=== PATIENT | female | born 1955 | race Caucasian/White ===

== ENCOUNTER 2020-11-24 09:50 | Inpatient (IN) | payer MEDICARE ==
[2020-11-24] MEDS ORDERED: Metoprolol Tartrate 5 MG/5 ML VIAL ONE ×2 (10:17→10:55)
[2020-11-24 11:02] LABS: #Basophils 0.1 10x3/uL (0.0-0.2); #Eosinphils 0.2 10x3/uL (0.0-0.5); #Monocytes 0.8 10x3/uL (0.0-1.1); #Neutrophils 9.3 10x3/uL (1.5-8.4); %Basophils 0.4 % (0.0-2.0); %Eosinophils 1.7 % (0.0-6.0); %Lymphocytes 14.3 % (18.0-47.0); %Monocytes 6.4 % (0.0-10.0); %Neutrophils 76.5 % (40.0-75.0); Mean Corpuscular HGB CONC 33.4 g/dL (32.0-36.0); Mean Corpuscular Hemoglobin 30.7 pg (27.0-33.0); Mean Corpuscular Volume 91.8 fl (81.6-98.3); Platelet Count 311 10x3/uL (150-450); RBC Distribution Width 15.2 % (11.5-14.5); Red Blood Cell (RBC) Count 3.91 10x6/uL (3.90-5.03); White Blood Cell (WBC) Count 12.1 10x3/uL (3.5-10.5)
[2020-11-24 11:09] LABS: ALT (SGPT) 15 U/L (8-55); AST (SGOT) 26 U/L (5-34); Albumin 4.3 g/dL (3.4-4.8); Alkaline Phosphatase 132 U/L (40-110); Anion Gap 20 mmol/L (10-20); BUN (Urea Nitrogen) 16 mg/dL (9.8-20.1); Bilirubin, Total 0.8 mg/dL (0.2-1.2); Calc. Creatinine Clearance 0 mL/min (70-130); Calcium 10.3 mg/dL (7.8-10.44); Carbon Dioxide 21 mmol/L (23-31); Chloride 101 mmol/L (98-107); Globulin 3.4 g/dL (2.4-3.5); Glucose 167 mg/dL (80-115); Potassium 4.8 mmol/L (3.5-5.1); Protein, Total 7.7 g/dL (5.8-8.1); Sodium 137 mmol/L (136-145)
[2020-11-24] MEDS ORDERED: Aspirin Chewable 81 MG TAB ONE (12:16)
[2020-11-24] MEDS ORDERED: Acetaminophen 325 MG TAB PO PRN (12:17)
[2020-11-24] MEDS ORDERED: Ondansetron PF 4 MG/2 ML Vial IVP PRN (12:17)
[2020-11-24] MEDS ORDERED: Enoxaparin Sodium 40 MG/0.4 ML SYRINGE SC SCH (12:30)
[2020-11-24 12:45] LABS: SARS-CoV-2 NAA Rapid Test Not Detected (NotDetected)
[2020-11-24 13:42] LABS: Troponin I 0.021 ng/mL (< 0.028)
[2020-11-24] MEDS ORDERED: Dextrose 50% Abboject 50 ML SYRINGE SLOW IVP PRN (15:14)
[2020-11-24] MEDS ORDERED: Dextrose 5% in Water 1,000 ML IV PRN (15:14)
[2020-11-24] MEDS ORDERED: Insulin Regular 300 UNITS/3 ML VIAL SC PRN (15:14)
[2020-11-24] MEDS ORDERED: HumaLOG 300 UNITS/3 ML VIAL SC PRN (15:14)
[2020-11-24] MEDS ORDERED: Digoxin 0.5 MG/2 ML AMP SLOW IVP SCH (16:15)
[2020-11-24] MEDS ORDERED: Digoxin 0.5 MG/2 ML AMP ONE (16:19)
[2020-11-24 16:41] LABS: Troponin I 0.021 ng/mL (< 0.028)
[2020-11-24] MEDS ORDERED: Diltiazem 125 MG/25 ML ONE (16:53)
[2020-11-24 20:18] VITALS: BMI 30.1
[2020-11-24] MEDS ORDERED: Metoprolol Tartrate 25 MG TAB PO SCH (21:00)
[2020-11-24] MEDS: metFORMIN XR 500 MG TAB PO SCH (21:20)
[2020-11-24] MEDS: Apixaban 5 MG TAB PO SCH (21:23)
[2020-11-25] MEDS ORDERED: Diltiazem 125 MG in Sodium Chloride 0.9% 100 ML IVPB SCH ×2 (03:00→21:30)
[2020-11-25 05:45] LABS: #Basophils 0.1 10x3/uL (0.0-0.2); #Eosinphils 0.2 10x3/uL (0.0-0.5); #Monocytes 0.6 10x3/uL (0.0-1.1); #Neutrophils 5.6 10x3/uL (1.5-8.4); %Basophils 0.7 % (0.0-2.0); %Eosinophils 2.3 % (0.0-6.0); %Lymphocytes 24.8 % (18.0-47.0); %Monocytes 7.1 % (0.0-10.0); %Neutrophils 64.3 % (40.0-75.0); Hemoglobin 12.2 g/dL (12.0-15.5); Mean Corpuscular HGB CONC 32.9 g/dL (32.0-36.0); Mean Corpuscular Hemoglobin 30.8 pg (27.0-33.0); Mean Corpuscular Volume 93.7 fl (81.6-98.3); Mean Platelet Volume 9.1 fl (7.4-10.4); Platelet Count 279 10x3/uL (150-450); RBC Distribution Width 15.4 % (11.5-14.5); Red Blood Cell (RBC) Count 3.96 10x6/uL (3.90-5.03); White Blood Cell (WBC) Count 8.7 10x3/uL (3.5-10.5)
[2020-11-25 05:59] LABS: Anion Gap 14 mmol/L (10-20); BUN (Urea Nitrogen) 15 mg/dL (9.8-20.1); Calc. Creatinine Clearance 95 mL/min (70-130); Calcium 10.3 mg/dL (7.8-10.44); Carbon Dioxide 24 mmol/L (23-31); Chloride 103 mmol/L (98-107); Glucose 191 mg/dL (80-115); Potassium 4.2 mmol/L (3.5-5.1); Sodium 137 mmol/L (136-145)
[2020-11-25] MEDS ORDERED: Sodium Chloride 0.9% 100 ML ONE (08:47)
[2020-11-25] MEDS: metFORMIN XR 500 MG TAB PO SCH ×2 (08:48→20:16)
[2020-11-25] MEDS: Apixaban 5 MG TAB PO SCH ×2 (08:48→20:16)
[2020-11-25] MEDS ORDERED: Aspirin 81 mg Enteric Coated Tablet PO SCH (09:00)
[2020-11-25] MEDS ORDERED: Enoxaparin Sodium 40 MG/0.4 ML SYRINGE SC SCH (09:00)
[2020-11-25] MEDS ORDERED: Venlafaxine HCl XR 75 MG CAP PO SCH (10:00)
[2020-11-25 10:48] LABS: Hemoglobin A1c 6.5 % (4.0-6.0)
[2020-11-25] MEDS ORDERED: Nitroglycerin 0.4 MG TAB (25 Tab Bottle) ONE (15:06)
[2020-11-25] MEDS ORDERED: Metoprolol Tartrate 5 MG/5 ML VIAL ONE (15:14)
[2020-11-25] MEDS ORDERED: Metoprolol Tartrate 5 MG/5 ML VIAL IVP SCH (15:15)
[2020-11-25] MEDS ORDERED: Diltiazem 125 MG/25 ML IVPB SCH (16:45)
[2020-11-26 05:41] LABS: #Basophils 0.1 10x3/uL (0.0-0.2); #Eosinphils 0.3 10x3/uL (0.0-0.5); #Monocytes 0.7 10x3/uL (0.0-1.1); #Neutrophils 7.1 10x3/uL (1.5-8.4); %Basophils 0.5 % (0.0-2.0); %Eosinophils 2.5 % (0.0-6.0); %Lymphocytes 20.2 % (18.0-47.0); %Monocytes 7.2 % (0.0-10.0); %Neutrophils 69.1 % (40.0-75.0); Mean Corpuscular HGB CONC 34.3 g/dL (32.0-36.0); Mean Corpuscular Hemoglobin 31.6 pg (27.0-33.0); Mean Corpuscular Volume 92.1 fl (81.6-98.3); Platelet Count 294 10x3/uL (150-450); RBC Distribution Width 15.6 % (11.5-14.5); White Blood Cell (WBC) Count 10.2 10x3/uL (3.5-10.5)
[2020-11-26 05:58] LABS: Anion Gap 15 mmol/L (10-20); BUN (Urea Nitrogen) 15 mg/dL (9.8-20.1); Calcium 9.9 mg/dL (7.8-10.44); Carbon Dioxide 22 mmol/L (23-31); Chloride 102 mmol/L (98-107); Glucose 176 mg/dL (80-115); Magnesium 1.9 mg/dL (1.6-2.6); Sodium 135 mmol/L (136-145)
[2020-11-26 06:41] LABS: Calc. Creatinine Clearance 99 mL/min (70-130)
[2020-11-26] MEDS: Apixaban 5 MG TAB PO SCH (08:55)
[2020-11-26] MEDS: metFORMIN XR 500 MG TAB PO SCH (08:56)
[2020-11-26] MEDS ORDERED: Venlafaxine HCl XR 75 MG CAP PO SCH (09:00)
[2020-11-26 13:52] VITALS: BP 149/75; TEMP 98.5
== END 2020-11-26 16:58 | disposition home or self-care (01) | DRG 310 ==
LOC: CSHERS 09:50 → UNDOADMIN 16:38 → CSHERHOLD 16:38 → CSHTELE 19:13 → CSHERHOLD 11-26 15:35 → UNDODISIN 11-26 16:58
PROVIDERS: ADMIT Internal Medicine; ATTEND Hospitalist
PROC: 5A2204Z Restoration of Cardiac Rhythm, Single (ICD-10-PCS; principal; 2020-11-26)
DX: I48.3 Typical atrial flutter (principal); Z79.01 Long term (current) use of anticoagulants; Z20.822 Contact with and (suspected) exposure to COVID-19; I25.10 Atherosclerotic heart disease of native coronary artery without angina pectoris; I10 Essential (primary) hypertension; G47.30 Sleep apnea, unspecified; E11.9 Type 2 diabetes mellitus without complications; E78.5 Hyperlipidemia, unspecified; I48.0 Paroxysmal atrial fibrillation; Z79.84 Long term (current) use of oral hypoglycemic drugs; Z79.899 Other long term (current) drug therapy
CPT/HCPCS: 36416; 71045; 80048; 80053; 83036; 83735; 83880; 84443; 84484; 85025; 92960; 93005; 93010; 93306; 96365; 96366; 96375; 96376; J1160; J3490; U0002

== ENCOUNTER 2023-10-28 13:32 | Emergency (ER) | payer MEDICARE, OTHER ==
[2023-10-28] MEDS ORDERED: Cyclobenzaprine 10 MG TAB ONE (14:59)
[2023-10-28] MEDS ORDERED: Ketorolac Tromethamine 30 MG (1 mL) VIAL ONE (14:59)
== END 2023-10-28 16:20 | disposition home or self-care (01) ==
LOC: CSHERS 13:32
DX: S16.1XXA Strain of muscle, fascia and tendon at neck level, initial encounter (principal); S39.012A Strain of muscle, fascia and tendon of lower back, initial encounter; M54.42 Lumbago with sciatica, left side; E11.9 Type 2 diabetes mellitus without complications; I10 Essential (primary) hypertension; V89.2XXA Person injured in unspecified motor-vehicle accident, traffic, initial encounter
CPT/HCPCS: 96372; 99283; J1885